=== PATIENT | female | born 2000 | race Caucasian/White ===

== ENCOUNTER 2024-05-01 16:05 | Emergency (ER) | payer MEDICAID, SELFPAY ==
[2024-05-01 16:29] VITALS: BP 116/81; PULSE 120; RESP 20; TEMP 37.4; O2SAT 97; BMI 22.7
--- NOTE | 2024-05-01 16:31 | EDNOTE_ITS ---
ED Allergic Reaction RME/HPI General Chief complaint: Allergic Reaction Stated complaint: hives, feeling like throat is closing 04/29/24 Time Seen by Provider: 05/01/24 16:12 Arrival date/time: 05/01/24 16:05 23-year-old female presents the emergency department complaint of rash patient reports that she just finished course of Macrobid and believes this is the cause of her symptoms. Patient reports no fever no nausea vomiting no weakness Limitations: no limitations Related Data Home Medications ?Medication ?Instructions ?Recorded ?Confirmed amoxicillin 875 mg-potassium 1 tab PO BID 09/26/18 clavulanate 125 mg tablet (Augmentin) Previous Rx's ?Medication ?Instructions ?Recorded ipratropium bromide 42 mcg (0.06 2 spray intranasal TID #15 mL 09/26/18 %) nasal spray loratadine 10 mg tablet (Allergy 10 mg PO QDAY allergy symptoms #30 09/26/18 Relief (loratadine)) tabs pseudoephedrine HCl 30 mg/5 mL 60 mg (10 mL) PO Q6H PRN sinus 09/26/18 oral liquid (Nasal Decongestant symptoms #118 mL (pseudoephedrine)) diphenhydramine HCl 25 mg capsule 25 mg PO Q8H PRN allergic symptoms 05/01/24 (Benadryl) #30 caps prednisone 10 mg tablet 30 mg (3 x 10 mg) PO BID 3 days 05/01/24 #18 tabs Allergies Allergy/AdvReac Type Severity Reaction Status Date / Time nitrofurantoin Allergy Severe Hives Verified 05/01/24 16:11 Review of Systems Review of Systems Systems Reviewed: All systems reviewed, normal except as documented Constitutional Constitutional: Reports system reviewed and no additional complaints, except as documented, Denies fever(s) and Denies headache(s) Eyes Eyes: Reports system reviewed and no additional complaints, except as documented and Denies blurry vision ENT Ears, Nose, Mouth, and Throat: Reports system reviewed and no additional complaints, except as documented, Denies headache(s), Denies nasal congestion and Denies nasal discharge Cardiovascular Cardiovascular: Reports system reviewed and no additional complaints, except as documented, Denies chest pain and Denies dyspnea Respiratory Respiratory: Reports system reviewed and no additional complaints, except as documented, Denies chest congestion, Denies cough and Denies dyspnea Gastrointestinal Gastrointestinal: Reports system reviewed and no additional complaints, except as documented and Denies abdominal pain Integumentary/Breasts Skin/Breast: Reports system reviewed and no additional complaints, except as documented, Reports pruritus and Reports rash Neurologic Neurologic: Reports system reviewed and no additional complaints, except as documented, Reports as per HPI and Denies headache(s) Past Medical History Past Medical History CARDIAC: Negative Congestive Heart Failure RESPIRATORY: Negative Chronic Obstructive Pulmonary Disease (COPD) GENITOURINARY: Negative Renal Disease ENDOCRINE: Negative Diabetes Mellitus Type 1 or Diabetes Mellitus Type 2 Social History SMOKING STATUS: Never smoker ED Exam General Limitations: Present no limitations General appearance: Present alert and in no apparent distress Head Head exam: Present atraumatic Eye Eye exam: Present normal appearance, PERRL and EOMI; Absent conjunctival injection ENT ENT exam: Present normal exam, normal oropharynx and mucous membranes moist Neck Neck exam: Present normal inspection, full ROM and trachea midline Chest Chest inspection: Present normal inspection and symmetric chest wall rise Respiratory Respiratory exam: Present normal lung sounds bilaterally Cardiovascular Cardiovascular exam: Present regular rate, normal rhythm and normal heart sounds Abdominal Exam Abdominal exam: Present soft and normal bowel sounds; Absent distention, tenderness, guarding, rebound or rigidity Extremities Exam Extremities exam: Present normal inspection and full ROM Back Exam Back exam: Present normal inspection and full ROM Neurological Exam Neurological exam: Present alert, oriented X3, CN II-XII intact, normal gait and reflexes normal; Absent motor sensory deficit Psychiatric Psychiatric exam: Present normal affect and normal mood Skin Skin exam: Present warm, dry and rash Course Quality Measures none Orders Category Date Time Status Dexamethasone Inj [Decadron Inj] Med 05/01/24 16:31 Discontinued 10 mg IM X1 ONE DiphenhydrAMINE [Benadryl] Med 05/01/24 16:31 Discontinued 50 mg PO X1 ONE Vital Signs Vital signs: Vital Signs Temperature 99.3 F 05/01/24 16:29 Pulse Rate 120 H 05/01/24 16:29 Respiratory Rate 20 05/01/24 16:29 Blood Pressure 116/81 05/01/24 16:29 Pulse Oximetry (%) 97 05/01/24 16:29 Oxygen Delivery Method Room Air 05/01/24 16:29 O2 saturation 97% room air within normal limits Allergic Reaction MDM Narrative MDM Narrative:: 23-year-old female presents the emergency department complaint of rash patient reports that she just finished course of Macrobid and believes this is the cause of her symptoms. Patient reports no fever no nausea vomiting no weakness On exam patient well-appearing patient does not appear ill or toxic Patient medicated here and discharged home with meds patient has no evidence of anaphylaxis Patient discharged home in no distress to follow-up with primary care doctor in the next 24 to 48 hours and for any worsening symptoms to return to the ER immediately Patient data External records reviewed:: [facility] previous records Clinical information provided by:: patient Social determinants that could affect healthcare access:: none Patient has the following chronic illnesses:: none How is presenting disease/condition affected by chronic disease/condition?: no chronic disease Evaluation data The following diagnostics were reviewed and interpreted by me:: other (specify) (N/A) Lab and/or radiology exams considered but not ordered:: Consider not ordered Interpretation Summary: N/A Medications / Prescriptions Medications or Prescriptions considered but not ordered:: Given Medication administrations:: Medication Administration History Discontinued Medications Dexamethasone Sodium Phosphate (Dexamethasone Sod Phos Inj 10 Mg/Ml Vial) 10 mg IM X1 ONE Stop: 05/01/24 16:32 Last Admin: 05/01/24 16:42 Dose: 10 mg Documented By: LISSETH Diphenhydramine HCl (Diphenhydramine 25 Mg Capsule) 50 mg PO X1 ONE Stop: 05/01/24 16:32 Last Admin: 05/01/24 16:41 Dose: 50 mg Documented By: LISSETH Given Consultations Consultation(s) initiated? (list below): No Diagnosis Differential Diagnosis allergic reaction: anaphylaxis, allergic reaction, viral enanthem and urticaria Most likely diagnosis given after review of the tests above:: Allergic reaction Admission Indicated Admission indicated?: not indicated Admission Request Was there a request for admission?: No Disposition Plan Disposition Plan: Discharge Discharge Attestation Discharge Attestation: The patient and all family members were given an opportunity to ask questions and understood the discharge instructions. Discharge instructions specifically effects, indications for sooner follow up or return to the emergency department, and the expected course of current diagnosis. Patient condition: Stable Discharge Plan Plan Patient Disposition: HOME (Self Care) Disposition Comment: Stable Prescriptions/Referrals Prescriptions/Med Rec: New prednisone 10 mg tablet 30 mg PO BID 3 Days Qty: 18 0RF diphenhydramine HCl [Benadryl] 25 mg capsule 25 mg PO Q8H PRN (Reason: allergic symptoms) Qty: 30 0RF No Action amoxicillin-pot clavulanate [Augmentin] 875-125 mg tablet 1 tab PO BID ipratropium bromide 42 mcg (0.06 %) spray,non-aerosol 2 spray INTRANASAL TID Qty: 15 0RF Rx Instructions: administer into each nostril; wait 30 seconds between sprays loratadine [Allergy Relief (loratadine)] 10 mg tablet 10 mg PO QDAY Qty: 30 3RF pseudoephedrine HCl [Nasal Decongestant (pseudoeph)] 30 mg/5 mL liquid 60 mg PO Q6H PRN (Reason: sinus symptoms) Qty: 118 0RF Problem List Clinical Impression: Allergic reaction Patient/Caregiver Discharge Instructions Education Materials: ED Medicine Reaction: Allergic Additional Instructions: Please follow up with your primary care doctor in the next 24-48hrs for any worsening symptoms return here immediately Print Language: Albanian Stand Alone Forms: Anushka Award Info., Patient Portal Info Letter PA/COMMERCIAL FRONT LOAD OPERATOR Supervising Physician PA/COMMERCIAL FRONT LOAD OPERATOR Supervising Physician: Dr Amie DONAHUE Attestation MD Attestation The patient was seen by the midlevel practitioner. I, the co-signing physician, was present during the entire ER visit. While I did not physically examine the patient, I was available for consultation as needed.
[2024-05-01] MEDS: DiphenhydrAMINE 25 MG CAPSULE 50 MG PO (16:41)
[2024-05-01] MEDS: DEXAMETHASONE SOD PHOS INJ 10 MG/ML VIAL IM (16:42)
[2024-05-01 16:56] VITALS: PULSE 102
== END 2024-05-01 17:05 | disposition home or self-care (01) ==
LOC: SERX 16:45
PROVIDERS: Emergency Provider Emergency Medicine; PCP Nurse Practitioner Family
DX: L27.0 Generalized skin eruption due to drugs and medicaments taken internally (principal); T37.8X5A Adverse effect of other specified systemic anti-infectives and antiparasitics, initial encounter
CPT/HCPCS: 96372; 99283; J1100; A9270

== ENCOUNTER 2025-03-21 19:00 | Emergency (ER) | payer MEDICAID, SELFPAY ==
[2025-03-21 19:55] VITALS: BP 114/77; PULSE 88; RESP 20; TEMP 37.2; O2SAT 99
--- NOTE | 2025-03-21 20:05 | PD.EDALLER ---
ED Allergic Reaction RME/HPI General Chief complaint: Allergic Reaction Stated complaint: ALLERGIC REACTION, DYSPNEA Time Seen by Provider: 03/21/25 19:12 Arrival date/time: 03/21/25 19:00 This is a case of 24-year-old female who came into the emergency room due to generalized maculopapular urticarial rashes on the neck chest abdomen and back after taking Bactrim today for urinary tract infection patient have mild shortness of breath but no drooling of saliva no facial or throat swelling persistence of the symptoms this patient decided to sought consult here in the emergency room denies any fever chills abdominal pain nausea vomiting or flank pain Limitations: no limitations Related Data Home Medications ?Medication ?Instructions ?Recorded ?Confirmed amoxicillin 875 mg-potassium 1 tab PO BID 09/26/18 clavulanate 125 mg tablet (Augmentin) Previous Rx's ?Medication ?Instructions ?Recorded ipratropium bromide 42 mcg (0.06 2 spray intranasal TID #15 mL 09/26/18 %) nasal spray loratadine 10 mg tablet (Allergy 10 mg PO QDAY allergy symptoms #30 09/26/18 Relief (loratadine)) tabs pseudoephedrine HCl 30 mg/5 mL 60 mg (10 mL) PO Q6H PRN sinus 09/26/18 oral liquid (Nasal Decongestant symptoms #118 mL (pseudoephedrine)) diphenhydramine HCl 25 mg capsule 25 mg PO Q8H PRN allergic symptoms 05/01/24 (Benadryl) #30 caps cephalexin 500 mg tablet 500 mg PO TID #30 tabs 03/21/25 diphenhydramine HCl 25 mg capsule 25 mg PO TID PRN allergy symptoms 03/21/25 (Benadryl) #20 caps famotidine 20 mg tablet (Pepcid) 20 mg PO BID #10 tabs 03/21/25 prednisone 20 mg tablet See Taper PO QDAY 5 days #5 tabs 03/21/25 Allergies Allergy/AdvReac Type Severity Reaction Status Date / Time nitrofurantoin Allergy Severe Hives Verified 03/21/25 19:04 sulfamethoxazole (From Allergy Intermediate TROUBLE Verified 03/21/25 19:04 Bactrim) BREATHING trimethoprim (From Bactrim) Allergy Intermediate TROUBLE Verified 03/21/25 19:04 BREATHING Review of Systems Review of Systems Systems Reviewed: All systems reviewed, normal except as documented Constitutional Constitutional: Reports system reviewed and no additional complaints, except as documented and Reports as per HPI ENT Ears, Nose, Mouth, and Throat: Reports system reviewed and no additional complaints, except as documented and Reports as per HPI Cardiovascular Cardiovascular: Reports system reviewed and no additional complaints, except as documented and Reports as per HPI Respiratory Respiratory: Reports system reviewed and no additional complaints, except as documented and Reports as per HPI Gastrointestinal Gastrointestinal: Reports system reviewed and no additional complaints, except as documented and Reports as per HPI Musculoskeletal Musculoskeletal: Reports system reviewed and no additional complaints, except as documented and Reports as per HPI Past Medical History Past Medical History CARDIAC: Negative Congestive Heart Failure RESPIRATORY: Negative Chronic Obstructive Pulmonary Disease (COPD) GENITOURINARY: Negative Renal Disease ENDOCRINE: Negative Diabetes Mellitus Type 1 or Diabetes Mellitus Type 2 Social History SMOKING STATUS: Never smoker ED Exam General Limitations: Present no limitations General appearance: Present alert, in no apparent distress and other (Patient is awake alert oriented not in distress nontoxic looking well-hydrated well-nourished) Head Head exam: Present atraumatic, normocephalic and normal inspection Eye Eye exam: Present normal appearance, PERRL and EOMI ENT ENT exam: Present normal exam, normal oropharynx, mucous membranes moist and other (Normal HEENT exam no drooling of saliva patient can speak full sentences no facial or throat swelling) Neck Neck exam: Present normal inspection, full ROM and trachea midline; Absent tenderness, meningismus, lymphadenopathy or thyromegaly Chest Chest inspection: Present normal inspection and symmetric chest wall rise; Absent tenderness Respiratory Respiratory exam: Present normal lung sounds bilaterally and other (Rhonchi no retraction no stridor no crackles); Absent respiratory distress, wheezes, stridor, accessory muscle use or prolonged expiratory phase Cardiovascular Cardiovascular exam: Present regular rate, normal rhythm and normal heart sounds; Absent bradycardia, tachycardia, irregular rhythm, systolic murmur or diastolic murmur Abdominal Exam Abdominal exam: Present soft and normal bowel sounds; Absent distention, tenderness, guarding, rebound, rigidity, diminished bowel sounds, hyperactive bowel sounds, hypoactive bowel sounds or organomegaly Extremities Exam Extremities exam: Present normal inspection and full ROM Back Exam Back exam: Present normal inspection and full ROM Neurological Exam Neurological exam: Present alert, oriented X3, CN II-XII intact, normal gait and reflexes normal; Absent motor sensory deficit Psychiatric Psychiatric exam: Present normal affect and normal mood Skin Skin exam: Present warm, dry, intact, normal color and other (With maculopapular urticarial rashes on neck chest abdomen and back suggestive of acute allergic reaction no abscess no cellulitis nonblanching) Course Quality Measures none Orders Category Date Time Status DiphenhydrAMINE INJ [Benadryl Inj] Med 03/21/25 20:00 Discontinued 25 mg IM X1 ONE Famotidine [Pepcid] Med 03/21/25 20:00 Discontinued 40 mg PO X1 ONE MethylPREDNISolone.* [SoluMEDROL Inj] Med 03/21/25 20:00 Discontinued 125 mg IM X1 ONE Vital Signs Vital signs: Vital Signs Temperature 99.0 F 03/21/25 19:55 Pulse Rate 88 03/21/25 19:55 Respiratory Rate 20 03/21/25 19:55 Blood Pressure 114/77 03/21/25 19:55 Pulse Oximetry (%) 99 03/21/25 19:55 Oxygen Delivery Method Room Air 03/21/25 19:55 Oxygen saturation is 99% in room air Allergic Reaction MDM Narrative MDM Narrative:: This is a case of 24-year-old female who came into the emergency room due to generalized maculopapular urticarial rashes on the neck chest abdomen and back after taking Bactrim today for urinary tract infection patient have mild shortness of breath but no drooling of saliva no facial or throat swelling persistence of the symptoms this patient decided to sought consult here in the emergency room denies any fever chills abdominal pain nausea vomiting or flank pain physical examination patient is awake alert oriented not in distress nontoxic looking vital signs stable BP stable HEENT exam is normal and unremarkable no drooling of saliva no facial or throat swelling patient can speak full sentences lungs sound is clear no crackles no rales no wheezing no stridor no retractions noted heart normal rate regular rhythm no murmur patient noted to have maculopapular urticarial rashes on the neck chest abdomen and back suggestive of acute allergic reaction patient was given Solu-Medrol Benadryl and Pepcid after 30 minutes patient was reassessed rash is subsided no shortness of breath no drooling of saliva no facial or throat swelling patient will be discharged home in stable condition patient will follow-up with PCP to be referred to psychiatric clinical nurse specialist for allergy testing she was advised to stop taking Bactrim I prescribed cephalexin for urinary tract infection for any worsening symptoms or any emergent concern she will return in the emergency room immediately or call 911 at the time of exam no signs and symptoms of angioedema or anaphylaxis Patient was discharged with comfortable condition walking with stable gait. Patient verbalized no further complains explained diagnosis and answered patient question. Patient is comfortable with the proposed management plan including the need to follow up with his/her primary care physician and any specialist if applicable Discussed patient for any urgent condition or worsening sx, He/She needed to go to emergency room immediately or call 911. Patient acknowledge the responsibility to follow up as instructed and to monitor her/his symptoms. For any persistence of the symptoms for more than 3-5 days return precaution advised. Discussed the result of the test and was given printed discharge instruction Patient data External records reviewed:: [facility] previous records Clinical information provided by:: patient Social determinants that could affect healthcare access:: none Patient has the following chronic illnesses:: None How is presenting disease/condition affected by chronic disease/condition?: no chronic disease Evaluation data The following diagnostics were reviewed and interpreted by me:: other (specify) Lab and/or radiology exams considered but not ordered:: None Interpretation Summary: None Medications / Prescriptions Medications or Prescriptions considered but not ordered:: Given Medication administrations:: Medication Administration History Discontinued Medications Diphenhydramine HCl (Diphenhydramine Inj 50 Mg/Ml Vial) 25 mg IM X1 ONE Stop: 03/21/25 20:01 Famotidine (Famotidine 20 Mg Tablet) 40 mg PO X1 ONE Stop: 03/21/25 20:01 Methylprednisolone Sodium Succinate (Methylprednisolone Sod Succ 62.5 Mg/Ml 2ml Vial) 125 mg IM X1 ONE Stop: 03/21/25 20:01 Given Consultations Consultation(s) initiated? (list below): No Diagnosis Differential Diagnosis allergic reaction: allergic reaction and adverse reaction to drug Most likely diagnosis given after review of the tests above:: Acute allergic reaction Admission Indicated Admission indicated?: not indicated Explain why admission is indicated or not indicated:: Not indicated Admission Request Was there a request for admission?: No Admission Attestation Admission request attestation: Not indicated Disposition Plan Disposition Plan: Discharge Discharge Attestation Discharge Attestation: The patient and all family members were given an opportunity to ask questions and understood the discharge instructions. Discharge instructions specifically effects, indications for sooner follow up or return to the emergency department, and the expected course of current diagnosis. Patient condition: Stable Discharge Plan Plan Patient Disposition: HOME (Self Care) Patient condition on transfer: Stable Prescriptions/Referrals Prescriptions/Med Rec: New cephalexin 500 mg tablet 500 mg PO TID Qty: 30 0RF prednisone 20 mg tablet See Taper PO QDAY 5 Days Qty: 5 0RF Taper: Prednisone Taper 20 mg DAILY for 2 Days and 0 Hour 10 mg DAILY for 2 Days and 0 Hour 5 mg DAILY for 7 Days and 0 Hour famotidine [Pepcid] 20 mg tablet 20 mg PO BID Qty: 10 0RF diphenhydramine HCl [Benadryl] 25 mg capsule 25 mg PO TID PRN (Reason: allergy symptoms) Qty: 20 0RF No Action amoxicillin-pot clavulanate [Augmentin] 875-125 mg tablet 1 tab PO BID ipratropium bromide 42 mcg (0.06 %) spray,non-aerosol 2 spray INTRANASAL TID Qty: 15 0RF Rx Instructions: administer into each nostril; wait 30 seconds between sprays loratadine [Allergy Relief (loratadine)] 10 mg tablet 10 mg PO QDAY Qty: 30 3RF pseudoephedrine HCl [Nasal Decongestant (pseudoeph)] 30 mg/5 mL liquid 60 mg PO Q6H PRN (Reason: sinus symptoms) Qty: 118 0RF diphenhydramine HCl [Benadryl] 25 mg capsule 25 mg PO Q8H PRN (Reason: allergic symptoms) Qty: 30 0RF Problem List Clinical Impression: Acute allergic reaction, Urinary tract infection Patient/Caregiver Discharge Instructions Education Materials: Urinary Tract Infections in Women, ED Medicine Reaction: Allergic Additional Instructions: Follow-up with your primary care physician in 2 days for reevaluation and to be referred to psychiatric clinical nurse specialist for allergy testing stop taking Bactrim instead start taking cephalexin 3 times a day for 10 days for your urinary tract infection recurrence persistent worsening symptoms or any emergent concern call 911 or go to the nearest emergency room keep hydrated Print Language: Malagasy Stand Alone Forms: Anushka Award Info., Patient Portal Info Letter PA/POLYETHYLENE BAG MACHINE OPERATOR Supervising Physician PA/POLYETHYLENE BAG MACHINE OPERATOR Supervising Physician: Dr. Garcia
[2025-03-21] MEDS: MethylPREDNISolone SOD SUCC 62.5 MG/ML 2ML VIAL 125 MG IM (20:11)
[2025-03-21] MEDS: FAMOTIDINE 20 MG TABLET 40 MG PO (20:11)
[2025-03-21 20:42] VITALS: BP 124/82; PULSE 70; RESP 18; O2SAT 98
== END 2025-03-21 20:43 | disposition home or self-care (01) ==
LOC: SERX 20:06
PROVIDERS: Emergency Provider Emergency Medicine
DX: L50.9 Urticaria, unspecified (principal); N39.0 Urinary tract infection, site not specified; T36.8X5A Adverse effect of other systemic antibiotics, initial encounter
CPT/HCPCS: 96372; 99283; J1200; J2919; A9270

== ENCOUNTER 2025-03-22 18:47 | Emergency (ER) | payer MEDICAID, SELFPAY ==
[2025-03-22 19:33] VITALS: BP 144/82; PULSE 84; RESP 20; TEMP 36.9; O2SAT 95; BMI 22.6
--- NOTE | 2025-03-22 19:41 | EDNOTE_ITS ---
ED Allergic Reaction RME/HPI General Chief complaint: Skin/Abscess/Foreign Body Stated complaint: GNERALIZED HIVES, THROAT IS TIGHT Time Seen by Provider: 03/22/25 19:38 Arrival date/time: 03/22/25 18:47 24F with no significant PMH presents to ED with 2 days of generalized itchy rash after taking Bactrim for a UTI. Patient was here yesterday for this. Rash went away after meds but came back today. Patient was prescribed Keflex in place of Bactrim. Limitations: no limitations Related Data Home Medications ?Medication ?Instructions ?Recorded ?Confirmed amoxicillin 875 mg-potassium 1 tab PO BID 09/26/18 clavulanate 125 mg tablet (Augmentin) Previous Rx's ?Medication ?Instructions ?Recorded ipratropium bromide 42 mcg (0.06 2 spray intranasal TI D #15 mL 09/26/18 %) nasal spray loratadine 10 mg tablet (Allergy 10 mg PO QDAY allergy symptoms #30 09/26/18 Relief (loratadine)) tabs pseudoephedrine HCl 30 mg/5 mL 60 mg (10 mL) PO Q6H IL N sinus 09/26/18 oral liquid (Nasal Decongestant symptoms #118 mL (pseudoephedrine)) diphenhydramine HCl 25 mg capsule 25 mg PO Q8H PRN all ergic symptoms 05/01/24 (Benadryl) #30 caps cephalexin 500 mg tablet 500 mg PO TID #30 tabs 03/21 diphenhydramine HCl 25 mg capsule 25 mg PO TID PRN all ergy symptoms 03/21/25 (Benadryl) #20 caps famotidine 20 mg tablet (Pepcid) 20 mg PO BID #10 tabs 03/21/25 prednisone 20 mg tablet See Taper PO QDAY 5 days #5 tabs 03/21/25 prednisone 50 mg tablet 50 mg PO QDAY 5 days #5 tabs 03/22/25 Allergies Allergy/AdvReac Type Severity Reaction Status Date / Time nitrofurantoin Allergy Severe Hives Verified 03/22/25 18:51 sulfamethoxazole (From Allergy Intermediate TROUBLE Verified 03/22/25 18:51 Bactrim) BREATHING trimethoprim (From Bactrim) Allergy Intermediate TROUBLE Verified 03/22/25 18:51 BREATHING Review of Systems Review of Systems Systems Reviewed: All systems reviewed, normal except as documented Integumentary/Breasts Skin/Breast: Reports as per HPI, Reports pruritus and Reports rash Past Medical History Past Medical History CARDIAC: Negative Congestive Heart Failure RESPIRATORY: Negative Chronic Obstructive Pulmonary Disease (COPD) GENITOURINARY: Negative Renal Disease ENDOCRINE: Negative Diabetes Mellitus Type 1 or Diabetes Mellitus Type 2 Social History SMOKING STATUS: Never smoker ED Exam General Limitations: Present no limitations General appearance: Present alert and in no apparent distress Head Head exam: Present atraumatic Neck Neck exam: Present normal inspection, full ROM and trachea midline Chest Chest inspection: Present normal inspection and symmetric chest wall rise Extremities Exam Extremities exam: Present normal inspection and full ROM Neurological Exam Neurological exam: Present alert and oriented X3 Psychiatric Psychiatric exam: Present normal affect and normal mood Skin Skin exam: Present warm, dry, intact, normal color and rash Course Quality Measures none Orders Category Date Time Status Dexamethasone Inj [Decadron Inj] Med 03/22/25 19:38 Discontinued 10 mg PO X1 ONE Ondansetron Odt [Zofran Odt] Med 03/22/25 22:13 Discontinued 4 mg PO X1 ONE predniSONE Med 03/22/25 19:38 Discontinued 40 mg PO X1 ONE Vital Signs Vital signs: Vital Signs Temperature 98.5 F 03/22/25 19:33 Pulse Rate 84 03/22/25 19:33 Respiratory Rate 20 03/22/25 19:33 Blood Pressure 144/82 H 03/22/25 19:33 Pulse Oximetry (%) 95 03/22/25 19:33 Oxygen Delivery Method Room Air 03/22/25 19:33 O2 at 95% on RA and WNLs Allergic Reaction MDM Narrative MDM Narrative:: 24F with no significant PMH presents to ED with 2 days of generalized itchy rash after taking Bactrim for a UTI. Patient was here yesterday for this. Rash went away after meds but came back today. Patient was prescribed Keflex in place of Bactrim. Physical exam reveals generalized urticarial rash. Oropharynx and WOB normal. Patient is afebrile, calm, and alert. Upon reassessment, rashes are less pronounced/rashed, but are still spreading, likely in the acute phase. Normal WOB. Patient started having some nausea, which is likely side effect from high dose steroids. [employer] Job Titles given. Patient data External records reviewed:: [facility] previous records Clinical information provided by:: patient Social determinants that could affect healthcare access:: none Patient has the following chronic illnesses:: none How is presenting disease/condition affected by chronic disease/condition?: no chronic disease Evaluation data The following diagnostics were reviewed and interpreted by me:: other (specify) (none) Lab and/or radiology exams considered but not ordered:: not ordered Interpretation Summary: n/a Medications / Prescriptions Medications or Prescriptions considered but not ordered:: ordered Medication administrations:: Medication Administration History Discontinued Medications Dexamethasone Sodium Phosphate (Dexamethasone Sod Phos Inj 10 Mg/Ml Vial) 10 mg PO X1 ONE Stop: 03/22/25 19:39 Last Admin: 03/22/25 19:48 Dose: 10 mg Documented By: SHEEBA Ondansetron HCl (Ondansetron Odt 4 Mg Tabrap) 4 mg PO X1 ONE; Protocol Stop: 03/22/25 22:14 Prednisone (Prednisone 20 Mg Tablet) 40 mg PO X1 ONE Stop: 03/22/25 19:39 Last Admin: 03/22/25 19:47 Dose: 40 mg Documented By: SHEEBA above Consultations Consultation(s) initiated? (list below): No Diagnosis Differential Diagnosis allergic reaction: anaphylaxis, allergic reaction, angioedema, contact dermatitis, adverse reaction to drug, viral enanthem and urticaria Most likely diagnosis given after review of the tests above:: allergic reaction Admission Indicated Admission indicated?: not indicated Admission Request Was there a request for admission?: No Disposition Plan Disposition Plan: Discharge Discharge Attestation Discharge Attestation: The patient and all family members were given an opportunity to ask questions and understood the discharge instructions. Discharge instructions specifically effects, indications for sooner follow up or return to the emergency department, and the expected course of current diagnosis. Patient condition: Stable Discharge Plan Plan Patient Disposition: HOME (Self Care) Discharge Disposition comment: Stable Prescriptions/Referrals Prescriptions/Med Rec: New prednisone 50 mg tablet 50 mg PO QDAY 5 Days Qty: 5 0RF No Action amoxicillin-pot clavulanate [Augmentin] 875-125 mg tablet 1 tab PO BID ipratropium bromide 42 mcg (0.06 %) spray,non-aerosol 2 spray INTRANASAL TID Qty: 15 0RF Rx Instructions: administer into each nostril; wait 30 seconds between sprays loratadine [Allergy Relief (loratadine)] 10 mg tablet 10 mg PO QDAY Qty: 30 3RF pseudoephedrine HCl [Nasal Decongestant (pseudoeph)] 30 mg/5 mL liquid 60 mg PO Q6H PRN (Reason: sinus symptoms) Qty: 118 0RF diphenhydramine HCl [Benadryl] 25 mg capsule 25 mg PO Q8H PRN (Reason: allergic symptoms) Qty: 30 0RF cephalexin 500 mg tablet 500 mg PO TID Qty: 30 0RF prednisone 20 mg tablet See Taper PO QDAY 5 Days Qty: 5 0RF Taper: Prednisone Taper 20 mg DAILY for 2 Days and 0 Hour 10 mg DAILY for 2 Days and 0 Hour 5 mg DAILY for 7 Days and 0 Hour famotidine [Pepcid] 20 mg tablet 20 mg PO BID Qty: 10 0RF diphenhydramine HCl [Benadryl] 25 mg capsule 25 mg PO TID PRN (Reason: allergy symptoms) Qty: 20 0RF Referrals: No Primary/Family,Physician [Primary Care Provider] - In 1 week Problem List Clinical Impression: Acute allergic reaction Patient/Caregiver Discharge Instructions Education Materials: ED Medicine Reaction: Allergic Additional Instructions: Please follow-up with PCP within 24-48 hours and return immediately if symptoms worsen. Take OTC antihistamine as needed until symptoms resolve. Finish entire steroid course. Take new steroid prescription. After you finish this course, take your existing course (5 pills) as follows: 20 mg BID. Can take last 20 mg on last day. Stop taking Keflex for a few days, at least until rash has resolved to see whether or not you are allergic to this new ABX. If you are, can get new RX from PCP. Print Language: Bolivian Stand Alone Forms: Patient Portal Info Letter PA/CANOE BUILDER Supervising Physician ROLO/RETA Supervising Physician: Dr. Garcia
[2025-03-22] MEDS: DEXAMETHASONE SOD PHOS INJ 10 MG/ML VIAL PO (19:48)
[2025-03-22 22:11] VITALS: BP 122/74; PULSE 92; RESP 18; TEMP 37; O2SAT 95
[2025-03-22] MEDS: ONDANSETRON ODT 4 MG TABRAP PO (22:22)
== END 2025-03-22 22:29 | disposition home or self-care (01) ==
PROVIDERS: Emergency Provider Emergency Medicine
DX: L50.0 Allergic urticaria (principal); T36.8X5A Adverse effect of other systemic antibiotics, initial encounter
CPT/HCPCS: 99283; J1100; J7512; Q0162

== ENCOUNTER 2025-03-23 20:49 | Emergency (ER) | payer MEDICAID, SELFPAY ==
[2025-03-23 21:08] VITALS: BP 97/65; PULSE 64; RESP 16; TEMP 36.8; O2SAT 98
--- NOTE | 2025-03-23 21:20 | PD.EDSYNC ---
ED Syncope RME/HPI General Chief Complaint: Abdominal Pain Stated Complaint: ABD PAIN Time Seen by Provider: 03/23/25 21:17 Arrival date/time: 03/23/25 20:49 RME / HPI RME / HPI narrative: 24-year-old female patient came in for evaluation regarding rashes. Patient's been having worsening rashes for the last 2 days, after patient took Bactrim for UTI. Patient patient was seen here 2 days ago, and was given medications, and came back again yesterday after taking Benadryl again for worsening rashes. Today patient noticed worsening erythematous rashes with hives, and was worried because been having epigastric pain with 2 episode of dizziness and near syncope. Patient denies any vomiting denies any chest pain denies any headache denies any other complaints. Denies any shortness of breath. Related Data Home Medications ?Medication ?Instructions ?Recorded ?Confirmed amoxicillin 875 mg-potassium 1 tab PO BID 09/26/18 clavulanate 125 mg tablet (Augmentin) Previous Rx's ?Medication ?Instructions ?Recorded ipratropium bromide 42 mcg (0.06 2 spray intranasal TID #15 mL 09/26/18 %) nasal spray loratadine 10 mg tablet (Allergy 10 mg PO QDAY allergy symptoms #30 09/26/18 Relief (loratadine)) tabs pseudoephedrine HCl 30 mg/5 mL 60 mg (10 mL) PO Q6H PRN sinus 09/26/18 oral liquid (Nasal Decongestant symptoms #118 mL (pseudoephedrine)) diphenhydramine HCl 25 mg capsule 25 mg PO Q8H PRN allergic symptoms 05/01/24 (Benadryl) #30 caps cephalexin 500 mg tablet 500 mg PO TID #30 tabs 03/21/25 diphenhydramine HCl 25 mg capsule 25 mg PO TID PRN allergy symptoms 03/21/25 (Benadryl) #20 caps famotidine 20 mg tablet (Pepcid) 20 mg PO BID #10 tabs 03/21/25 prednisone 20 mg tablet See Taper PO QDAY 5 days #5 tabs 03/21/25 prednisone 50 mg tablet 50 mg PO QDAY 5 days #5 tabs 03/22/25 Allergies Allergy/AdvReac Type Severity Reaction Status Date / Time nitrofurantoin Allergy Severe Hives Verified 03/23/25 20:52 sulfamethoxazole (From Allergy Intermediate TROUBLE Verified 03/23/25 20:52 Bactrim) BREATHING trimethoprim (From Bactrim) Allergy Intermediate TROUBLE Verified 03/23/25 20:52 BREATHING Review of Systems Review of Systems Narrative Review of Systems: Review of system reviewed and within normal limits except mentioned in HPI ED Exam Narrative Physical exam: VITAL SIGNS: Reviewed. GENERAL APPEARANCE: Alert and interactive, follows commands, no acute distress, HEAD AND FACE: Non-traumatic. ENT: PERRL, pink conjunctivitis, eyelid no trauma, Mucous membrane moist. NECK: Supple, nontender, no nuchal rigidity. CHEST: No tenderness, no crepitus, no paradoxical movement, no retractions. LUNGS: Clear, well ventilated, symmetric, no rales, no wheezing, no ronchi, no stridor, good breath sounds bilaterally. HEART: Regular rate, regular rhythm, no murmur, no gallops. ABDOMEN: Soft, positive bowel sounds, nondistended, no guarding, nontender, no rebound, no masses, RECTAL: Deferred. GENITAL: Deferred. NEUROLOGICAL: Gross motor function intact sensory function intact, Appropriate for age. MUSCULOSKELETAL: low back nontender, full range of motion. EXTREMITIES: Nontender, full range of motion. SKIN: Color pink, dry, multiple hives,/rash scattered all over, no lacerations, no abrasions, no contusions. LYMPHATICS: Deferred. Course Quality Measures none Orders Category Date Time Status CBC [CBC] Stat Lab 03/23/25 21:39 Completed CMP [Comprehensive Metabolic Panel] Stat Lab 03/23/25 21:39 Completed HCG Qualitative,Urine Stat Lab 03/23/25 21:42 Completed UA, C/S IF [Urinalysis, C/S if Indicated] Stat Lab 03/23/25 21:42 Completed Dexamethasone Inj [Decadron Inj] Med 03/23/25 21:17 Discontinued 10 mg IVP X1 ONE DiphenhydrAMINE INJ [Benadryl Inj] Med 03/23/25 21:17 Discontinued 50 mg IVP X1 ONE EPINEPHrine Inj [Adrenalin Inj] Med 03/23/25 21:17 Discontinued 0.3 mg IM X1 ONE Famotidine Inj [Pepcid Inj] Med 03/23/25 21:17 Discontinued 20 mg IVP X1 ONE Potassium Chloride [K-Dur] Med 03/23/25 22:34 Discontinued 40 meq PO X1 ONE Ringers Lactated 1000 ml [Lactated Ringers] 1,000 ml Med 03/23/25 21:19 Discontinued IV 999 mls/hr Vital Signs Vital signs: Vital Signs Temperature 98.2 F 03/23/25 21:08 Pulse Rate 64 03/23/25 21:08 Respiratory Rate 16 03/23/25 21:08 Blood Pressure 97/65 03/23/25 21:08 Pulse Oximetry (%) 98 03/23/25 21:08 Oxygen Delivery Method Room Air 03/23/25 21:08 Syncope [facility] Narrative [facility] Narrative:: 24-year-old female patient came in for evaluation regarding rashes. Patient's been having worsening rashes for the last 2 days, after patient took Bactrim for UTI. Patient patient was seen here 2 days ago, and was given medications, and came back again yesterday after taking Benadryl again for worsening rashes. Today patient noticed worsening erythematous rashes with hives, and was worried because been having epigastric pain with 2 episode of dizziness and near syncope. Patient denies any vomiting denies any chest pain denies any headache denies any other complaints. Denies any shortness of breath. Patient workup is significant for leukocytosis of 19.5, the rest of the labs unremarkable including urinalysis which is contaminated. Patient is not having any symptoms of UTI. Patient potassium was noted to be 3.2 potassium replacement was also given. Patient also received IV fluids, EpiPen IM, Pepcid, Decadron, and Benadryl with complete resolution of symptoms. Patient data External records reviewed:: None Clinical information provided by:: patient Social determinants that could affect healthcare access:: none Patient has the following chronic illnesses:: None How is presenting disease/condition affected by chronic disease/condition?: no chronic disease Evaluation data The following diagnostics were reviewed and interpreted by me:: lab results Lab and/or radiology exams considered but not ordered:: None Interpretation Summary: See results MDM Medications / Prescriptions Medications or Prescriptions considered but not ordered:: None Medication administrations:: Medication Administration History Discontinued Medications Dexamethasone Sodium Phosphate (Dexamethasone Sod Phos Inj 10 Mg/Ml Vial) 10 mg IVP X1 ONE Stop: 03/23/25 21:18 Last Admin: 03/23/25 21:39 Dose: 10 mg Documented By: HUYEN Diphenhydramine HCl (Diphenhydramine Inj 50 Mg/Ml Vial) 50 mg IVP X1 ONE Stop: 03/23/25 21:18 Last Admin: 03/23/25 21:41 Dose: 50 mg Documented By: HUYEN Epinephrine HCl (Epinephrine Inj 1 Mg/Ml Amp) 0.3 mg IM X1 ONE Stop: 03/23/25 21:18 Last Admin: 03/23/25 21:35 Dose: 0.3 mg Documented By: HUYEN Famotidine (Famotidine Inj 10 Mg/Ml Vial 2 Ml) 20 mg IVP X1 ONE Stop: 03/23/25 21:18 Last Admin: 03/23/25 21:39 Dose: 20 mg Documented By: HUYEN Lactated Ringer's (Lactated Ringers) 1,000 mls @ 999 mls/hr IV .Q1H1M ONE Stop: 03/23/25 22:19 Last Admin: 03/23/25 21:40 Dose: 999 mls/hr Documented By: HUYEN Potassium Chloride (Potassium Chloride 20 Meq Tabcr) 40 meq PO X1 ONE Stop: 03/23/25 22:35 Last Admin: 03/23/25 22:46 Dose: 40 meq Documented By: HUYEN See MDM Consultations Consultation(s) initiated? (list below): No Diagnosis Syncope Differential Diagnosis: syncope due to orthostatic hypotension and vasovagal syncope Most likely diagnosis given after review of the tests above:: Drug allergy, allergic reaction Admission Indicated Admission indicated?: not indicated Admission Request Was there a request for admission?: No Disposition Plan Disposition Plan: Discharge Discharge Attestation Discharge Attestation: The patient and all family members were given an opportunity to ask questions and understood the discharge instructions. Discharge instructions specifically effects, indications for sooner follow up or return to the emergency department, and the expected course of current diagnosis. Patient condition: Stable Discharge Plan Plan Patient Disposition: HOME (Self Care) Prescriptions/Referrals Prescriptions/Med Rec: No Action amoxicillin-pot clavulanate [Augmentin] 875-125 mg tablet 1 tab PO BID ipratropium bromide 42 mcg (0.06 %) spray,non-aerosol 2 spray INTRANASAL TID Qty: 15 0RF Rx Instructions: administer into each nostril; wait 30 seconds between sprays loratadine [Allergy Relief (loratadine)] 10 mg tablet 10 mg PO QDAY Qty: 30 3RF pseudoephedrine HCl [Nasal Decongestant (pseudoeph)] 30 mg/5 mL liquid 60 mg PO Q6H PRN (Reason: sinus symptoms) Qty: 118 0RF diphenhydramine HCl [Benadryl] 25 mg capsule 25 mg PO Q8H PRN (Reason: allergic symptoms) Qty: 30 0RF cephalexin 500 mg tablet 500 mg PO TID Qty: 30 0RF prednisone 20 mg tablet See Taper PO QDAY 5 Days Qty: 5 0RF Taper: Prednisone Taper 20 mg DAILY for 2 Days and 0 Hour 10 mg DAILY for 2 Days and 0 Hour 5 mg DAILY for 7 Days and 0 Hour famotidine [Pepcid] 20 mg tablet 20 mg PO BID Qty: 10 0RF diphenhydramine HCl [Benadryl] 25 mg capsule 25 mg PO TID PRN (Reason: allergy symptoms) Qty: 20 0RF prednisone 50 mg tablet 50 mg PO QDAY 5 Days Qty: 5 0RF Referrals: No Primary/Family,Physician [Primary Care Provider] - In 1 week Problem List Clinical Impression: Acute allergic reaction Patient/Caregiver Discharge Instructions Discharge Activity: activity as tolerated Education Materials: ED Medicine Reaction: Allergic Additional Instructions: Thank you for the opportunity for serving you today. You are stable for discharged . You are advised to: Follow-up with your PCP in 1 to 2 days Return to ED for worsening of symptoms Increase oral fluids Take your prednisone 50 mg daily for 5 days, Pepcid 40 mg twice a day for 5 days, Benadryl 25 mg every 8 hours as needed Print Language: Frisian Stand Alone Forms: Anushka Award Info., Patient Portal Info Letter PA/COMPUTER OPERATIONS ANALYST Supervising Physician PA/COMPUTER OPERATIONS ANALYST Supervising Physician: MD Radha
[2025-03-23 21:35] VITALS: BP 103/50; PULSE 78
[2025-03-23] MEDS: EPINEPHrine INJ 1 MG/ML AMP 0.3 MG IM (21:35)
[2025-03-23 21:38] VITALS: BP 103/50; PULSE 86; RESP 16; TEMP 37; O2SAT 99
[2025-03-23] MEDS: FAMOTIDINE INJ 10 MG/ML VIAL 2 ML 20 MG IVP (21:39)
[2025-03-23] MEDS: DEXAMETHASONE SOD PHOS INJ 10 MG/ML VIAL IVP (21:39)
[2025-03-23] MEDS: RINGERS LACTATED 1000 ML 1,000 ML 999 ML IV (21:40)
[2025-03-23 21:44] VITALS: BMI 20.9
[2025-03-23 21:53] LABS: Basophils # (Auto) 0.0 Thou/mm3 (0.0-0.2); Basophils % (Auto) 0 % (0-2.5); Eosinophils # (Auto) 0.1 Thou/mm3 (0.0-0.5); Eosinophils % (Auto) 0 % (0-10); Hematocrit 39.9 % (36.0-46.0); Hemoglobin 13.8 g/dL (12.0-16.0); Immature Granulocytes Auto 0.08 Thou/mm3 (0.00-0.00); Lymphocytes # (Auto) 2.2 Thou/mm3 (1.0-4.8); Lymphocytes % (Auto) 11 % (10-50); Mean Corpuscular HGB Conc 34.6 g/dl (31.0-37.0); Mean Corpuscular Hemoglobin 31.0 pg (25.0-35.0); Mean Corpuscular Volume 90 fL (80-100); Monocytes # (Auto) 0.6 Thou/mm3 (0.0-0.8); Monocytes % (Auto) 3 % (0-12); Neutrophils # (Auto) 16.5 Thou/mm3 (1.8-7.7); Neutrophils % (Auto) 85 % (37-80); Nucleated Red Blood Cell # 0.00 Thou/mm3 (0.00-0.00); Nucleated Red Blood Cell % 0 /100 WBC (0); Platelet Count 172 Thou/mm3 (140-440); RDW Standard Deviation 40.7 fL (36.4-46.3); Red Blood Count 4.45 Miln/mm3 (4.00-5.20); White Blood Count 19.5 Thou/mm3 (3.6-11.0)
[2025-03-23 21:54] LABS: Collection Type, Urine Clean Catch
[2025-03-23 22:15] LABS: Alanine Aminotransferase 24 U/L (10-49); Albumin, Serum 4.7 gm/dL (3.5-5.0); Albumin/Globulin Ratio 2.0 (1.2-2.2); Alkaline Phosphatase 50 U/L (46-116); Anion Gap 9 (7-16); Aspartate Amino Transferase 28 U/L (0-34); BUN/Creatinine Ratio 13 Ratio (12-20); Bilirubin,Total 0.5 mg/dL (0.3-1.2); Blood Urea Nitrogen 12 mg/dL (9-23); Calcium 9.5 mg/dL (8.3-10.6); Calcium (Corrected) 9.5 mg/dL (8.5-10.1); Carbon Dioxide 29.7 mMol/L (20.0-31.0); Chloride 100 mMol/L (98-107); Creatinine (Component) 0.9 mg/dL (0.6-1.3); Estimated Creatinine Clearance 89.0 mL/min (>60); Globulin 2.4 gm/dL (2.3-3.5); Glucose 103 mg/dL (74-106); Osmolality,Calculated 277 (275-295); Potassium 3.2 mMol/L (3.4-5.1); Sodium 139 mMol/L (136-145); Total Protein 7.1 gm/dL (5.7-8.2); eGFR > 60 See Note
[2025-03-23 22:21] LABS: HCG Qualitative,Urine Negative
[2025-03-23 22:24] LABS: Bacteria,Urine Rare; Bilirubin,Urine Negative (Negative); Blood,Urine 2+ (Negative); Clarity,Urine Clear (Clear/Hazy); Color,Urine Lt-Yellow (Lt Yel-Yel); Culture Indicated,Urine Not Indicated; Glucose, Urine Negative (Negative); Ketones,Urine Negative (Negative); Leukocyte Esterase,Urine Positive (Negative); Nitrite,Urine Negative (Negative); PH,Urine 6.0 (5.0-7.0); Protein,Urine Negative (Neg - Trace); RBC,Urine 13 /hpf (0-3); Specific Gravity,Urine 1.012 (1.001-1.035); Squamous Epithelial Cell,Urine 10 /hpf (0-5); Urobilinogen,Urine Negative mg/dL (0.0-1.0); WBC,Urine 10 /hpf (0-5)
[2025-03-23 22:31] VITALS: BP 107/66; PULSE 92; RESP 19; TEMP 36.8; O2SAT 99
== END 2025-03-23 23:44 | disposition home or self-care (01) ==
PROVIDERS: Nurse Practitioner Family; Emergency Provider Emergency Medicine
DX: L50.0 Allergic urticaria (principal); T36.8X5A Adverse effect of other systemic antibiotics, initial encounter
CPT/HCPCS: 36415; 80053; 81001; 81025; 85025; 96361; 96372; 96374; 96375; 99284; J0166; J1100; J1200; J3490; J7120; A9270

== ENCOUNTER → 2025-05-04 | Outpatient (CLI) | payer MEDICAID, SELFPAY ==
--- NOTE | 2025-05-04 12:31 | XR_ITS ---
EXAMINATION: Sinus series 4 views TECHNIQUE: Charlie Ludwig lateral submentovertex sinus series 4 views Date and time: May 04, 2025, 1342 hours INDICATIONS: Sinus pressure and pain several years. FINDINGS: Mild opacity in the frontal ethmoid air cells left maxillary antrum and sphenoid air cells No retention cyst No fluid levels IMPRESSION: Mild chronic pansinusitis Mild hypertrophy inferior nasal turbinates
[2025-05-04 15:16] LABS: Basophils # (Auto) 0.0 Thou/mm3 (0.0-0.2); Basophils % (Auto) 1 % (0-2.5); Eosinophils # (Auto) 0.0 Thou/mm3 (0.0-0.5); Eosinophils % (Auto) 1 % (0-10); Hematocrit 40.4 % (36.0-46.0); Hemoglobin 13.6 g/dL (12.0-16.0); Immature Granulocytes Auto 0.01 Thou/mm3 (0.00-0.00); Lymphocytes # (Auto) 2.0 Thou/mm3 (1.0-4.8); Lymphocytes % (Auto) 45 % (10-50); Mean Corpuscular HGB Conc 33.7 g/dl (31.0-37.0); Mean Corpuscular Hemoglobin 30.6 pg (25.0-35.0); Mean Corpuscular Volume 91 fL (80-100); Monocytes # (Auto) 0.3 Thou/mm3 (0.0-0.8); Monocytes % (Auto) 6 % (0-12); Neutrophils # (Auto) 2.1 Thou/mm3 (1.8-7.7); Neutrophils % (Auto) 47 % (37-80); Nucleated Red Blood Cell # 0.00 Thou/mm3 (0.00-0.00); Nucleated Red Blood Cell % 0 /100 WBC (0); Platelet Count 146 Thou/mm3 (140-440); RDW Standard Deviation 42.1 fL (36.4-46.3); Red Blood Count 4.44 Miln/mm3 (4.00-5.20); White Blood Count 4.5 Thou/mm3 (3.6-11.0)
[2025-05-04 15:23] LABS: Glucose Estimated Average 97 mg/dL (80-131); Hemoglobin A1C 5.0 % Hgb (4.8-6.0)
[2025-05-04 15:30] LABS: Alanine Aminotransferase 28 U/L (10-49); Albumin, Serum 5.1 gm/dL (3.5-5.0); Albumin/Globulin Ratio 2.7 (1.2-2.2); Alkaline Phosphatase 49 U/L (46-116); Anion Gap 8 (7-16); Aspartate Amino Transferase 21 U/L (0-34); BUN/Creatinine Ratio 17 Ratio (12-20); Bilirubin,Total 0.7 mg/dL (0.3-1.2); Blood Urea Nitrogen 19 mg/dL (9-23); Calcium 9.6 mg/dL (8.3-10.6); Calcium (Corrected) 9.6 mg/dL (8.5-10.1); Carbon Dioxide 29.2 mMol/L (20.0-31.0); Cardiac Risk Estimate 2.7 RATIO (3.7-5.6); Chloride 106 mMol/L (98-107); Cholesterol 196 mg/dL (132-200); Creatinine (Component) 1.1 mg/dL (0.6-1.3); Globulin 1.9 gm/dL (2.3-3.5); Glucose 93 mg/dL (74-106); HDL Cholesterol 73 mg/dL (40-60); LDL Cholesterol,Calculated 114 mg/dL (0-130); Osmolality,Calculated 287 (275-295); Potassium 3.9 mMol/L (3.4-5.1); Sodium 143 mMol/L (136-145); Thyroid Stimulating Hormone 0.69 uIU/mL (0.55-4.78); Total Protein 7.0 gm/dL (5.7-8.2); Triglycerides 43 mg/dL (30-150); eGFR > 60 See Note
== END | disposition home or self-care (01) ==
DX: J32.4 Chronic pansinusitis (principal); J34.3 Hypertrophy of nasal turbinates; Z00.01 Encounter for general adult medical examination with abnormal findings; Z13.6 Encounter for screening for cardiovascular disorders; Z79.899 Other long term (current) drug therapy
CPT/HCPCS: 36415; 70210; 80053; 80061; 83036; 84443; 85025